=== PATIENT | male | born 1975 | race Caucasian/White ===

== ENCOUNTER 2024-03-12 14:10 | Emergency (ER) | payer OTHER ==
[~2024-03-12] VITALS: Ht 172.7 cm; Wt 68.0 kg
[2024-03-12 14:21] VITALS: BP 141/85; PULSE 65; RESP 20; TEMP 98.6; O2SAT 96
[2024-03-12 14:48] LABS: BASOPHILS # (AUTO) 0.1 K/uL (0.00-0.22); BASOPHILS % (AUTO) 1.8 % (0.0-2.0); EOSINOPHILS # (AUTO) 0.4 K/uL (0-0.4); EOSINOPHILS % (AUTO) 7.3 % (0.0-4.0); HEMATOCRIT 43.5 % (36-52); LYMPHOCYTES # (AUTO) 0.6 K/uL (2.0-11.5); LYMPHOCYTES % (AUTO) 9.5 % (20.5-51.1); MEAN CORPUSCULAR HEMOGLOBIN 31 pg (27-31); MEAN CORPUSCULAR HGB CONC 35 g/dL (33-37); MEAN CORPUSCULAR VOLUME 90.4 fL (80-94); MONOCYTES # (AUTO) 0.3 K/uL (0.8-1.0); MONOCYTES % (AUTO) 4.2 % (1.7-9.3); NEUTROPHILS # (AUTO) 4.6 K/uL (1.8-7.7); NEUTROPHILS % (AUTO) 77.2 % (42.2-75.2); PLATELET COUNT (AUTO) 238 K/uL (140-450); RED BLOOD CELL COUNT(AUTO) 4.82 MIL/uL (4.20-6.10); RED CELL DISTRIBUTION WIDTH 13.5 % (11.6-13.7)
[2024-03-12] MEDS: ACETAMINOPHEN EXTRA STRENGTH 500 MG TAB PO ONE (14:55)
[2024-03-12] MEDS: ASPIRIN 325 MG TAB PO ONE (14:57)
[2024-03-12] MEDS: ASPIRIN 81 MG TAB.CHEW PO ONE ×2 (14:59→15:02)
[2024-03-12 15:04] LABS: ALBUMIN 4.3 g/dL (3.4-5.0); ANION GAP 9.4 (8-16); CARBON DIOXIDE 31.3 mmol/L (21-32); CREATININE 1.1 mg/dL (0.6-1.3); POTASSIUM 3.7 mmol/L (3.5-5.1); TOTAL BILIRUBIN 0.8 mg/dL (0.0-1.0); TOTAL PROTEIN, SERUM 7.8 g/dL (6.4-8.2)
[2024-03-12 15:10] VITALS: O2SAT 96
[2024-03-12] MEDS ORDERED: NAPR-337 PO (15:55)
[2024-03-12 16:10] VITALS: BP 141/85; PULSE 65; RESP 20; TEMP 98.6; O2SAT 96
== END 2024-03-12 16:01 | disposition home or self-care (01) ==
LOC: MED 14:10
DX: R07.9 Chest pain, unspecified (principal); M25.512 Pain in left shoulder; R51.9 Headache, unspecified; F17.200 Nicotine dependence, unspecified, uncomplicated; Z79.899 Other long term (current) drug therapy
CPT/HCPCS: 36415; 71045; 80053; 83880; 84484; 85025; 93005; 99285; Q0092